=== PATIENT | female | born 1955 | race Caucasian/White ===

== ENCOUNTER 2021-08-02 21:17 | Emergency (ER) | payer OTHER ==
[2021-08-02 22:18] LABS: BILIRUBIN Negative (Negative); BLOOD 2+ (Negative); CLARITY Turbid (Clear); COLOR Yellow (Yellow); GLUCOSE Negative (Negative); KETONE Trace (Negative); LEUKO ESTERASE 2+ (Negative); NITRITE Negative (Negative); SPECIFIC GRAVITY 1.025 (1.001-1.030); UROBILINOGEN 0.2 E.U./dl (0.0-1.0)
[2021-08-02 22:34] LABS: BACTERIA 2+; MUCOUS TRACE; WBC TNTC wbc/hpf (0-5); YEAST TRACE
[2021-08-02] MEDS ORDERED: LEVOTHYROXINE200 MC2 PO (23:06)
[2021-08-02] MEDS ORDERED: VENLAFAXINE37.5 M1 PO (23:06)
[2021-08-02] MEDS ORDERED: ZOFRAN4 MG PO (23:06)
[2021-08-02] MEDS ORDERED: OMEPRAZOLE40 MG PO (23:07)
[2021-08-02] MEDS ORDERED: REMERON15 M2 PO (23:08)
[2021-08-02] MEDS ORDERED: METOPROLOL SUCC50 M1 PO (23:08)
[2021-08-02] MEDS ORDERED: LEXAPRO10 MG PO (23:08)
== END 2021-08-02 23:59 ==
LOC: ED 21:17
PROVIDERS: Internal Medicine
DX: S02.2XXA Fracture of nasal bones, initial encounter for closed fracture (principal); S00.83XA Contusion of other part of head, initial encounter; N39.0 Urinary tract infection, site not specified; W18.39XA Other fall on same level, initial encounter; Y93.89 Activity, other specified; Y92.89 Other specified places as the place of occurrence of the external cause; Y99.8 Other external cause status

== ENCOUNTER 2021-08-03 14:25 | Emergency (ER) | payer OTHER ==
[~2021-08-03] VITALS: Wt 19.1 kg
[~2021-08-03 14:25] MED LIST: LEVOTHYROXINE200 MC2 PO; LEXAPRO10 MG PO; METOPROLOL SUCC50 M1 PO; OMEPRAZOLE40 MG PO; REMERON15 M2 PO; VENLAFAXINE37.5 M1 PO; ZOFRAN4 MG PO
== END 2021-08-03 18:45 ==
LOC: ED 14:25
DX: S02.2XXA Fracture of nasal bones, initial encounter for closed fracture (principal); S00.83XA Contusion of other part of head, initial encounter; Z79.899 Other long term (current) drug therapy; Z91.018 Allergy to other foods; W18.39XA Other fall on same level, initial encounter; Y93.89 Activity, other specified; Y92.128 Other place in nursing home as the place of occurrence of the external cause; Y99.8 Other external cause status